=== PATIENT | female | born 1965 | race Hispanic/Latino ===

== ENCOUNTER 2021-04-10 18:29 | Emergency (ER) | payer SELFPAY ==
[~2021-04-10] VITALS: Ht 157.5 cm; Wt 80.7 kg
[2021-04-10 19:39] LABS: BASOPHILS % 0.8 % (0.0-1.0); EOSINOPHILS # (AUTO) 0.3 (0.0-0.4); EOSINOPHILS % 6.5 % (0.0-6.0); HEMATOCRIT 40.6 % (34.2-44.1); HEMOGLOBIN 13.3 g/dL (12.0-16.0); LYMPHOCYTES # (AUTO) 2.3 (1.0-3.2); LYMPHOCYTES % 43.9 % (18.0-39.1); MEAN CORPUSCULAR HEMOGLOBIN 30.2 pg (28-32); MEAN CORPUSCULAR HGB CONC 32.8 g/dL (31-35); MEAN CORPUSCULAR VOLUME 92.3 fL (81-99); MONOCYTES # (AUTO) 0.4 (0.2-0.8); MONOCYTES % 6.9 % (4.4-11.3); NEUTROPHILS # (AUTO) 2.2 (2.1-6.9); NEUTROPHILS % 41.7 % (38.7-80.0); PLATELET COUNT 195 x10e3/uL (140-360); RED CELL DISTRIBUTION WIDTH 13.2 % (11.7-14.4)
[2021-04-10 19:53] LABS: ALANINE AMINOTRANSFERASE 18 IU/L (0-55); ALBUMIN 3.9 g/dL (3.5-5.0); ALBUMIN/GLOBULIN RATIO 1.2 (0.8-2.0); ALKALINE PHOSPHATASE 71 IU/L (40-150); ANION GAP 14.4 mmol/L (8-16); BLOOD UREA NITROGEN 15 mg/dL (7-26); BUN/CREATININE RATIO 19 (6-25); CARBON DIOXIDE 21 mmol/L (22-29); CHLORIDE 112 mmol/L (98-107); CREATINE KINASE 49 IU/L (29-168); CREATININE, SERUM 0.77 mg/dL (0.57-1.11); EST GLOMERULAR FILTRATION RATE 78 ML/MIN (60-); GLUCOSE 128 mg/dL (74-118); POTASSIUM 3.4 mmol/L (3.5-5.1); SODIUM 144 mmol/L (136-145)
[2021-04-10] MEDS ORDERED: MECLIZINE HCL 12.5 MG TAB PO ONE (21:00)
[2021-04-10] MEDS ORDERED: MECLIZINE HCL 12.5 MG TAB ONE (21:11)
[2021-04-10 22:27] VITALS: BP 127/77
== END 2021-04-10 22:28 | disposition home or self-care (01) ==
LOC: ER 18:59
DX: H81.399 Other peripheral vertigo, unspecified ear (principal); I10 Essential (primary) hypertension
CPT/HCPCS: 36415; 71045; 80053; 82550; 82553; 84484; 85025; 93005; 99284; J8597

== ENCOUNTER 2024-07-29 17:20 | Observation (INO) | payer OTHER ==
[~2024-07-29] VITALS: Ht 157.5 cm; Wt 80.9 kg
[2024-07-29 17:25] VITALS: TEMP 97.7
[2024-07-29 17:50] LABS: BASOPHILS # (AUTO) 0.1 (0.0-0.1); EOSINOPHILS # (AUTO) 0.2 (0.0-0.4); HEMOGLOBIN 14.3 g/dL (12.0-16.0); LYMPHOCYTES # (AUTO) 2.9 (1.0-3.2); LYMPHOCYTES % 48.3 % (18.0-39.1); MEAN CORPUSCULAR HEMOGLOBIN 30.8 pg (28-32); MEAN CORPUSCULAR HGB CONC 31.8 g/dL (31-35); MEAN CORPUSCULAR VOLUME 96.8 fL (81-99); MONOCYTES # (AUTO) 0.4 (0.2-0.8); NEUTROPHILS # (AUTO) 2.5 (2.1-6.9); NEUTROPHILS % 40.5 % (38.7-80.0); PLATELET COUNT 181 x10e3/uL (140-360); RED BLOOD COUNT 4.65 x10e6/uL (3.6-5.1); RED CELL DISTRIBUTION WIDTH 12.3 % (11.7-14.4); WHITE BLOOD COUNT 6.04 x10e3/uL (4.8-10.8)
[2024-07-29 18:04] LABS: ALBUMIN 4.3 g/dL (3.5-5.0); ALBUMIN/GLOBULIN RATIO 1.3 (0.8-2.0); ANION GAP 16.1 mmol/L (8-16); BILIRUBIN,TOTAL 0.4 mg/dL (0.2-1.2); CALCIUM 9.7 mg/dL (8.4-10.2); CREATININE, SERUM 0.71 mg/dL (0.57-1.11); POTASSIUM 4.1 mmol/L (3.5-5.1); TOTAL PROTEIN 7.7 g/dL (6.5-8.1)
[2024-07-29 18:40] LABS: CLARITY,URINE CLEAR (CLEAR); COLOR,URINE COLORLESS (YELLOW)
[2024-07-29 18:41] LABS: BILIRUBIN,URINE NEGATIVE (NEGATIVE); GLUCOSE, URINE NEGATIVE (NEGATIVE); KETONES,URINE NEGATIVE (NEGATIVE); LEUKOCYTE ESTERASE ,URINE TRACE (NEGATIVE); NITRITE,URINE NEGATIVE (NEGATIVE); PH,URINE 6 (5 - 7); PROTEIN,URINE DIPSTICK NEGATIVE (NEGATIVE); URINE UROBILINOGEN 0.2 mg/dL (0.2 - 1)
[2024-07-29 18:48] LABS: EPITHELIAL CELLS,URINE RARE /LPF; WBC,URINE (MAN) 0-5 /HPF (0-5)
[2024-07-29] MEDS: SODIUM CHLORIDE 0.9% 1000ML 1,000 ML IV STA (19:23)
[2024-07-29 19:25] VITALS: PULSE 63; RESP 16
[2024-07-29] MEDS ORDERED: ONDANSETRON HCL INJ 2MG/ML 2ML 2 MG/ML VIAL IV PRN (20:15)
[2024-07-29 21:58] VITALS: BP 165/79; PULSE 54; RESP 16; TEMP 98.2; O2SAT 98
[2024-07-29 22:00] VITALS: BP 165/79; PULSE 54; RESP 16; TEMP 98.2; O2SAT 98
[2024-07-29] MEDS: SODIUM CHLORIDE 0.9% 1000ML 1,000 ML IV SCH (22:53)
[2024-07-29] MEDS: Morphine 4mg INJECTION 4 MG/ML INJ IV PRN (22:54)
[2024-07-30] VITALS (9 sets, daily range): BP systolic 112–147; BP diastolic 62–88; PULSE 53–76; RESP 16–20; TEMP 97.8–98.2; O2SAT 96–100
[2024-07-30] MEDS ORDERED: LOSARTAN POTASS25 MG PO (00:13)
[2024-07-30] MEDS ORDERED: ACETAZOLAMIDE250 MG PO (00:13)
[2024-07-30] MEDS ORDERED: ASPIRIN81 MG PO (00:13)
[2024-07-30 01:32] LABS: TROPONIN I 0.005 ng/mL (0-0.300)
[2024-07-30] MEDS ORDERED: ACETAMINOPHEN 325 MG TAB PO PRN (05:15)
[2024-07-30] MEDS: ACETAMINOPHEN 325 MG TAB PO PRN (05:33)
[2024-07-30] MEDS: ACETAMINOPHEN 325 MG TAB ONE (05:34)
[2024-07-30 06:06] LABS: BASOPHILS % 0.8 % (0.0-1.0); EOSINOPHILS # (AUTO) 0.2 (0.0-0.4); HEMATOCRIT 41.9 % (34.2-44.1); LYMPHOCYTES % 42.4 % (18.0-39.1); MEAN CORPUSCULAR HEMOGLOBIN 30.4 pg (28-32); MEAN CORPUSCULAR VOLUME 97.9 fL (81-99); MONOCYTES # (AUTO) 0.5 (0.2-0.8); MONOCYTES % 10.4 % (4.4-11.3); NEUTROPHILS % 42.2 % (38.7-80.0); PLATELET COUNT 161 x10e3/uL (140-360); RED BLOOD COUNT 4.28 x10e6/uL (3.6-5.1); RED CELL DISTRIBUTION WIDTH 12.5 % (11.7-14.4); WHITE BLOOD COUNT 4.81 x10e3/uL (4.8-10.8)
[2024-07-30 06:32] LABS: ALBUMIN 3.6 g/dL (3.5-5.0); ALBUMIN/GLOBULIN RATIO 1.3 (0.8-2.0); BILIRUBIN,TOTAL 0.3 mg/dL (0.2-1.2); CALCIUM 8.9 mg/dL (8.4-10.2); CREATININE, SERUM 0.64 mg/dL (0.57-1.11); TOTAL PROTEIN 6.4 g/dL (6.5-8.1)
[2024-07-30 06:56] LABS: TROPONIN I 0.002 ng/mL (0-0.300)
[2024-07-30] MEDS ORDERED: LORAZEPAM INJ 2 MG/ML VIAL IV ONE ×2 (11:00→11:30)
[2024-07-30] MEDS: LORAZEPAM INJ 2 MG/ML VIAL IV ONE (11:11)
[2024-07-30 15:35] LABS: CREATINE KINASE 46 IU/L (29-168)
[2024-07-30 15:44] LABS: TROPONIN I < 0.001 ng/mL (0-0.300)
[2024-07-31] VITALS (7 sets, daily range): BP systolic 119–153; BP diastolic 77–92; PULSE 55–65; RESP 18–19; TEMP 98.1–98.6; O2SAT 95–100
[2024-08-01] MEDS ORDERED: LOSARTAN POTASSIUM 25 MG TAB PO SCH (09:00)
== END 2024-07-31 22:13 | disposition left against medical advice (07) ==
LOC: ER 18:01 → ERHOLD 20:04 → MED/SURG2 22:00
PROVIDERS: ADMIT Internal Medicine; ATTEND Internal Medicine
DX: G43.109 Migraine with aura, not intractable, without status migrainosus (principal); I10 Essential (primary) hypertension; G45.9 Transient cerebral ischemic attack, unspecified; E66.9 Obesity, unspecified; Z68.32 Body mass index [BMI] 32.0-32.9, adult
CPT/HCPCS: 36415; 70450; 70551; 71045; 80053; 81001; 82550; 83880; 84484; 85025; 93005; 93306; 93880; 94799; 95819; 99284; G0378; J2060; J2270; J7030